=== PATIENT | male | born 1960 | race Caucasian/White ===

== ENCOUNTER 2016-10-13 10:23 | Observation (INO) ==
[2016-10-13] MEDS ORDERED: Ipratropium/Albuterol Neb 3 ML IH ONE (10:43)
[2016-10-13] MEDS ORDERED: Acetaminophen 325 MG TABLET PO ONE (10:49)
[2016-10-13] MEDS ORDERED: 0.9 % Sodium Chloride 1,000 ML IVC ONE (10:49)
--- NOTE | 2016-10-13 10:50 | Emergency Department Note ---
Disposition Clinical Impression: Sarcoidosis Fever Qualifiers: Fever type: unspecified Qualified Code(s): R50.9 - Fever, unspecified Nausea and vomiting Qualifiers: Vomiting type: unspecified Vomiting Intractability: unspecified Qualified Code( s): R11.2 - Nausea with vomiting, unspecified COPD (chronic obstructive pulmonary disease) Qualifiers: COPD type: unspecified COPD Qualified Code(s): J44.9 - Chronic obstructive pulmonary disease, unspecified Disposition: Admitted As Inpatient Condition: Fair Time of Disposition: 12:04 General Adult HPI - General Chief complaint: ED Nausea/Vomiting/Diarrhea Stated complaint: Poss pneumonia Time Seen by Provider: 10/13/16 10:32 Source: patient Mode of arrival: ambulatory Limitations: no limitations Nursing Notes Reviewed: Yes Vital Signs Reviewed: Yes - History of Present Illness HPI Narrative: 56-year-old with a history of sarcoidosis who underwent a hernia repair 6 days ago who comes in with nausea vomiting shaking chills cough shortness of breath. The patient states had surgery 6 days ago. He's had some nausea vomiting and actually a cough and shortness of breath. Patient was seen couple of days ago had a CT of the abdomen which was negative. He's had worsening cough and had a chest x-ray last p.m. that showed a bilateral infiltrates that they thought was underlying sarcoid but could not rule out pneumonia. He has had a fever up to 103. Pt Subjective Complaint: Chills cough nausea vomiting Location: abdomen Radiation: non-radiation Pain Scale: 6 Quality: aching Consistency: intermittent Improves with: nothing Worsens with: other (Coughing) Associated symptoms: Reports: cough, fever/chills, nausea/vomiting Treatments Prior to Arrival: none - Related Data Home Medications Medication Instructions Recorded Confirmed Albuterol Sulfate [Proair Hfa] 2 puff IH Q4H PRN 10/07/16 10/07/16 Budesonide/Formoterol 160/4.5 2 puff IH BIDR 10/07/16 10/07/16 [Symbicort 160/4.5] Buspirone HCl [Buspar] 7.5 mg PO HS 10/07/16 10/07/16 Methotrexate [Otrexup] 10 mg PO QWEEK 10/07/16 10/07/16 Previous Rx's Medication Instructions Recorded OxyCODONE/APAP 10/325 [Percocet 1 each PO Q6HR PRN #24 tab 10/07/16 10/325 MG] Chlorpromazine HCl 25 mg PO Q6H #10 tablet 10/09/16 Ondansetron ODT [Zofran ODT] 4 mg PO Q6H #9 tab.rapdis 10/09/16 Sulfamethoxazole/Trimeth DS 1 each PO BID #20 tablet 10/09/16 [Bactrim DS] Allergies Allergy/AdvReac Type Severity Reaction Status Date / Time No Known Allergies Allergy Verified 10/09/16 15:05 All systems ED: reviewed and negative except as stated. Constitutional: Reports: fever, chills. Denies: weakness, weight change Eyes: Denies: eye pain, eye discharge, vision change ENT ED: Denies: ear pain, throat pain, dental pain, hearing loss, epistaxis, congestion, dysphagia Cardiovascular: Denies: chest pain, palpitations, dyspnea on exertion, edema, syncope Respiratory: Reports: cough. Denies: dyspnea, wheezes, hemoptysis, stridor Gastrointestinal: Denies: abdominal pain, nausea, vomiting, diarrhea, constipation, hematemesis, melena, hematochezia Genitourinary: Denies: urgency, dysuria, frequency, hematuria Musculoskeletal: Denies: back pain, neck pain, arthralgia, myalgia Integumentary: Denies: rash, abrasion, lesions Neurological: Denies: headache, weakness, numbness, paresthesias, confusion, abnormal gait, vertigo Psychiatric: Denies: anxiety, depression, suicidal thoughts, homicidal thoughts , auditory hallucinations, visual hallucinations Endocrine: Denies: fatigue Hematological/Lymphatic: Denies: easy bleeding, easy bruising Allergic/Immunologic: Denies: facial swelling, urticaria Past Medical History - Past Medical History Medical history: Reports: other Psychiatric history: Reports: no psych history - Social History Smoking Status: Never smoker Smokeless Tobacco Status: No Alcohol use: Reports: rarely Drug use: Reports: none Physical Exam - General Limitations: no limitations General appearance: alert, in no apparent distress - Head Head exam: atraumatic, normocephalic, normal inspection - Eye Eye exam: Present: normal appearance, PERRL, EOMI - ENT ENT exam: normal exam, normal oropharynx, mucous membranes moist - Neck Neck exam: Present: normal inspection, full ROM, trachea midline - Chest Chest inspection: Present: normal inspection, symmetric chest wall rise - Respiratory Respiratory exam: Present: wheezes, accessory muscle use, prolonged expiratory phase - Cardiovascular Cardiovascular exam: Present: regular rate, tachycardia - Abdominal Exam Abdominal exam: Present: soft, Non-Tender. Absent: tenderness, distention, guarding, rebound, rigidity - Extremities Exam Extremities exam: Present: normal inspection, full ROM. Absent: tenderness, pedal edema - Expanded Lower Extremity Exam Neurovascular/Tendon exam: Absent: motor deficit, sensory deficit, tendon deficit Gait: observed and normal - Back Exam Back exam: Present: normal inspection, full ROM. Absent: tenderness - Neurological Exam Neurological exam: Present: alert, oriented X3 - Psychiatric Psychiatric exam: Present: normal affect, normal mood - Skin Skin exam: Present: warm, dry, intact, normal color Course - Reevaluation(s) Reevaluation #1: 56-year-old who had hernia surgery week ago as had nausea vomiting cough. Fever up to 103. Chest x-ray was concerning for possible pneumonia, CT scan indicated likely sarcoidosis. Patient with diffuse wheezing. Patient will be admitted for further evaluation and treatment. Time: 12:08 - Consultations Consultation #1: Discussed with Dr. Nayak, admit. Time: 12:18 Vital Signs Temperature 103 F H 10/13/16 10:26 Pulse Rate 127 10/13/16 10:26 Respiratory Rate 16 10/13/16 10:26 Blood Pressure 113/69 10/13/16 10:26 O2 Sat by Pulse Oximetry 91 10/13/16 10:26 Temperature 103 F H 10/13/16 10:26 Pulse Rate 127 10/13/16 10:26 Respiratory Rate 16 10/13/16 10:26 Blood Pressure 113/69 10/13/16 10:26 O2 Sat by Pulse Oximetry 93 10/13/16 10:52 Oxygen Delivery Oxygen Delivery Room Air Medical Decision Making - Lab Data Lab results reviewed: Yes I reviewed the patient's lab results. Result diagrams: 10/13/16 10:50 10/13/16 10:50 Lab Results 10/13/16 10/13/16 10/13/16 Range/Units 10:50 10:50 10:50 WBC 9.7 (4.3-11.1) K/mcL RBC 6.00 H (4.19-5.50) M/mcL Hgb 18.3 H (12.9-16.9) g/dL Hct 51.3 H (37.5-50.1) % MCV 85.5 (83.0-100.0) fL MCH 30.5 (28.0-33.3) pg MCHC 35.7 H (31.6-35.5) g/dL RDW 13.1 (11.5-14.5) % Plt Count 130 L (140-400) K/mcL MPV 10.2 (9.4-12.4) fL Immature Gran % 0.3 (0-4) % Seg Neutrophils % 87.4 % Lymphocytes % 2.2 % Monocytes % 8.0 % Eosinophils % 1.8 % Basophils % 0.3 % Neutrophils # 8.4 (1.6-8.9) K/mcL Lymphocytes # 0.2 L (0.6-4.6) K/mcL Monocytes # 0.8 (0.0-1.3) K/mcL Eosinophils # 0.2 (0.0-0.6) K/mcL Basophils # 0.0 (0.0-0.2) K/mcL Sodium 137 (136-145) mEq/L Potassium 4.3 (3.5-4.5) mEq/L Chloride 103 (98-109) mEq/L Carbon Dioxide 27 (19-29) mEq/L BUN 23 (8-26) mg/dL Creatinine 1.47 H (0.72-1.25) mg/dL Est GFR ( Amer) > 60 (> 60) Est GFR (Non-Af Amer) 50 L (> 60) BUN/Creatinine Ratio 16 (6-26) Glucose 135 H (70-99) mg/dL Calculated Osmolality 290 (280-300) Lactic Acid 1.8 (0.5-2.2) mmol/L Calcium 9.1 (8.6-10.8) mg/dL - Radiology Data Radiology results reviewed: Yes I reviewed the patient's radiology results. Chest CT 10/13/16 10:41 IMPRESSION: 1. No definite acute cardiopulmonary disease. 2. CT findings compatible with the provided history of sarcoidosis as described. D/ / 10/13/2016 11:58:39 Madeline Hartmann MD / cynthia Interpreting Provider: Madeline Hartmann MD - EKG Data EKG #1 EKG attestation: Yes I reviewed and interpreted this EKG. EKG shows normal: sinus rhythm Rate: tachycardia Rhythm: NSR Voltage: c/w LVH Interpretation: no acute changes
[2016-10-13] MEDS ORDERED: Levofloxacin 750 MG/150 ML 750 MG/150 ML BAG IVPB ONE (10:53)
[2016-10-13 11:07] LABS: Basophils % 0.3 %; Eosinophils # 0.2 K/mcL (0.0-0.6); Eosinophils % 1.8 %; Hematocrit 51.3 % (37.5-50.1); Hemoglobin 18.3 g/dL (12.9-16.9); Immature Granulocytes % 0.3 % (0-4); Lymphocytes # 0.2 K/mcL (0.6-4.6); Lymphocytes % 2.2 %; Mean Corpuscular HGB Conc 35.7 g/dL (31.6-35.5); Mean Corpuscular Hemoglobin 30.5 pg (28.0-33.3); Mean Corpuscular Volume 85.5 fL (83.0-100.0); Mean Platelet Volume 10.2 fL (9.4-12.4); Monocytes # 0.8 K/mcL (0.0-1.3); Neutrophils # 8.4 K/mcL (1.6-8.9); Platelet Count 130 K/mcL (140-400); Red Cell Distribution Width 13.1 % (11.5-14.5); Segmented Neutrophils % 87.4 %
[2016-10-13 11:19] LABS: BUN/Creatinine Ratio 16 (6-26); Blood Urea Nitrogen 23 mg/dL (8-26); Calcium 9.1 mg/dL (8.6-10.8); Carbon Dioxide 27 mEq/L (19-29); Chloride 103 mEq/L (98-109); Glucose 135 mg/dL (70-99); Osmolality,Calculated 290 (280-300); Potassium 4.3 mEq/L (3.5-4.5); Sodium 137 mEq/L (136-145); eGFR For African Americans > 60 (> 60); eGFR For Non-African Americans 50 (> 60)
[2016-10-13] MEDS ORDERED: methylPREDNISolone 125 MG/2 ML VIAL IVP ONE (12:14)
[2016-10-13] MEDS ORDERED: Acetaminophen 325 MG TABLET PO PRN (13:29)
[2016-10-13] MEDS ORDERED: Ondansetron 4 MG/2 ML VIAL IVP PRN (13:29)
[2016-10-13] MEDS ORDERED: *HR* Morphine 2 MG/ML SYRINGE IVP PRN (13:29)
[2016-10-13] MEDS ORDERED: Naloxone 0.4 MG/ML INJ IVP PRN (13:29)
[2016-10-13] MEDS ORDERED: Metoclopramide 10 MG/2 ML VIAL IVP PRN (13:46)
[2016-10-13] MEDS ORDERED: Metoclopramide 10 MG/2 ML VIAL IVP ONE (13:47)
--- NOTE | 2016-10-13 14:10 | Internal Med History&Physical ---
<Stewart Vasquez - Last Filed: 10/13/16 18:35> Date of Encounter: 10/13/16 Time of Encounter: 12:30 Assessment and Plan (1) SIRS (systemic inflammatory response syndrome) Current visit: Yes Status: Acute Upon admission to ED today, patient presents with 2 SIRS criteria of temperature of 103F and heart rate of 127 BPM. Patient's current WBC is 9.7 and respiration rate is 18. Initial lactic acid is 1.8. CXR yesterday was suspicious for pneumonia based on bilateral infiltrates, but CT of the chest today shows no definite acute cardiopulmonary disease and CT findings compatible with the provided history of sarcoidosis as described. Patient administered IV Levaquin while in the ED. Hold IV Levaquin for now to determine the results of the STAT CT scan of the abdomen to rule out possible surgical site infection from patient's umbilical hernia repair 6 days ago. Lactic acid ordered. Will monitor patient for signs of increasing infection/SIRS criteria and will consider continuation of IV antibiotics based on results of CT and blood/urine cultures. (2) Tachycardia Current visit: Yes Status: Acute Patient presents with acute tachycardia and heart rate of 127 bpm on admission to ED. Patient denies any current cardiac history or issues. Patient is also febrile with temperature 103F. Patient placed on continuous cardiac telemetry with IV fluids and administer Tylenol PRN for fever control. Echocardiogram ordered. (3) Fever Current visit: Yes Status: Acute Patient presents with acute fever of 103F on admission to ED. Will administer tylenol PRN for fever reduction. IV 0.9 NS at 100 mL/HR ordered. Blood/urine cultures ordered. Qualifiers: Fever type: unspecified Qualified Code(s): R50.9 - Fever, unspecified (4) Hiccups Current visit: Yes Status: Acute Patient presents with acute and chronic post surgery for umbilical hernia repair 6 days ago. IVP Reglan 10 mg now and every 6 when necessary for nausea and hiccups. (5) Nausea and vomiting Current visit: Yes Status: Acute Patient presents with acute nausea and vomiting for the past 6 days post surgery for umbilical hernia repair. Patient states he has had cyclical nausea and vomiting and has lost 10 pounds in 1 week from not being able to eat. Stat CT the abdomen without contrast ordered to rule out possible infectious process of the surgical site. Patient given IVP Zofran while in the ED. Will order IVP Reglan 10 mg now as well as every 6 when necessary for nausea and hiccups. Monitor I&O and daily weight. Qualifiers: Vomiting type: cyclical vomiting Vomiting Intractability: non-intractable Qualified Code(s): G43.A0 - Cyclical vomiting, not intractable (6) At risk for surgical site infection Current visit: No Status: Acute Patient reports repair of umbilical hernia 6 days ago and presents currently with nausea, vomiting, SOB, cough, and fever. Patient's current WBC is 9.7. Patient had CT of the abdomen post surgery which was negative. CT of the abdomen ordered tomorrow to rule out possible infectious process post surgery due to patient having upper GI today. Stat KUB ordered. On examination, patient surgical site is intact with edges approximated and with mild erythema. Will assess surgical site for signs of increasing infection. Wound Care consult and daily wound care ordered. (7) COPD (chronic obstructive pulmonary disease) Current visit: Yes Status: Chronic Patient presents with history of chronic COPD. On admission today, patient is mildly dyspneic and SPO2 is 91% on room air. CT of the chest without contrast today shows no definite acute cardiopulmonary disease. CT findings compatible with the provided history of sarcoidosis as described. Patient placed on supplemental O2 continuous SPO2 monitoring. DuoNeb nebs ordered every 4 scheduled. Qualifiers: COPD type: unspecified COPD Qualified Code(s): J44.9 - Chronic obstructive pulmonary disease, unspecified (8) Sarcoidosis Current visit: Yes Status: Acute Patient presents with history of chronic sarcoidosis. CT of the chest today without contrast shows extensive mediastinal and hilar adenopathy is identified , compatible with the per provided history of sarcoid. Findings are not significantly changed since October 2013. Extensive peribronchial and perilymphatic opacities are identified compatible with the provided history of sarcoid findings are worse in the upper lobes compared to the lower lobes. Findings appear slightly improved since 10/24/2013 and no dominant or suspicious pulmonary nodule is appreciated. (9) DVT prophylaxis Current visit: Yes Status: Acute Patient placed on DVT prophylaxis due to current admission protocol and current symptoms. Heparin 5000 units SQ every 8 ordered. Internal Medicine - H&P: HPI Chief complaint: Nausea/Vomiting/Hiccups Admitted From: Emergency Dept Plans for Post Hospital Care: Home History of present illness: Mr. Holder is a 56 year old male who presents from the ED with chief complaint of nausea and vomiting since having umbilical hernia repair surgery last . He states that he has developed chronic hiccups since the surgery along with the N/V, which has increased his abdominal pain. Upon admission, his temperature is 103F, HR 127, RR 16, BP 113/69, SpO2 93% on 3L. WBC is 9.7. He reports losing 10 pounds in the past week from not eating. He reports some SOB, cough, and fever. Patient's CXR yesterday was suspicious for bilateral infiltrates of sarcoidosis versus possible pneumonia. CT of the chest today without contrast shows no definite acute cardiopulmonary disease. CT findings compatible with the provided history of sarcoidosis as described. Findings are not significantly changed since October 2013. Findings are worse in the upper lobes compared to the lower lobes findings appear slightly improved since 10/24/2013 no dominant or suspicious pulmonary nodule is appreciated. Patient reports he has never smoked and his current medical history includes sarcoidosis and COPD. Mr. Holder is at moderate risk for further respiratory distress and further morbidity due to current N/V and possible infection and will be placed as observation status with orders for continuous cardiac telemetry for sinus tachycardia, supplemental O2 and SpO2 monitoring, echocardiogram, Stat CT of the abdomen to rule out any infection process due to recent surgery, IVP Reglan now and Q6 PRN for hiccups and nausea, and clear liquid diet to be advanced as tolerated. Blood and urine cultures ordered in the ED. Patient is to be monitored for signs of increasing infection, nausea, vomiting, cardiac and/or respiratory distress. Time spent with patient >40 minutes. Past Med Surg Social Fam HX - Past Medical History Source: patient Medical history: COPD, other (Sarcoidosis) Psychiatric history: no psych history - Social History Smoking Status: Never smoker Smokeless Tobacco Status: No Alcohol use: rarely Drug use: none Occupational status: employed Current living situation: Home Activity Level: Independent ambulation Recent Out of Country Travel Within the Last 8 Weeks: No Exposure or Possible Exposure to Illness During Travel: No - Family History Father Race: Family Member Ethnicity: Non- Living Status: Age at : 80 Cause of : Complications from hernia surgery Hx Family Cardiac Disorders: Yes (OH, HTN) Hx Family Endocrine Disorder: Yes (DM) Mother Race: Family Member Ethnicity: Non- Living Status: Still Living Hx Family Neurologic Disorders: Yes (Alzheimer's) Brother Race: Family Member Ethnicity: Non- Living Status: Still Living Hx Family Cardiac Disorders: Yes (HD, HTN, HLD) Hx Family Endocrine Disorder: Yes (DM) Internal Medicine - H&P: Meds Albuterol Sulfate [Proair Hfa] 2 puff IH Q4H PRN 10/07/16 [History] Budesonide/Formoterol 160/4.5 [Symbicort 160/4.5] 2 puff IH BIDR 10/07/16 [ History] Buspirone HCl [Buspar] 7.5 mg PO HS 10/07/16 [History] Methotrexate [Otrexup] 10 mg PO QWEEK 10/07/16 [History] OxyCODONE/APAP 10/325 [Percocet 10/325 MG] 1 each PO Q6HR PRN #24 tab 10/07/16 [ Rx] Ondansetron ODT [Zofran ODT] 4 mg PO Q6H #9 tab.rapdis 10/09/16 [Rx] Sulfamethoxazole/Trimeth DS [Bactrim DS] 1 each PO BID #20 tablet 10/09/16 [Rx] 3 Allergy/AdvReac Type Severity Reaction Status Date / Time No Known Allergies Allergy Verified 10/09/16 15:05 All Systems PM: A 10-system review of systems was performed and is negative for pertinent findings except as documented above in the HPI. - Constitutional Constitutional: as per HPI, weight loss (10 pounds over one week due to current N/V), no chills, no fever(s), no night sweats - EENT Eyes: no change in vision, no discharge, no pain, no photophobia Ears: no ear discharge, no ear pain, no tinnitus Nose, mouth and throat: no dysphagia, no nasal discharge, no neck pain, no sore throat - Breasts Breasts: as per HPI - Cardiovascular Cardiovascular ROS IM: as per HPI, dyspnea, other (Tachycardia) - Respiratory Respiratory: as per HPI, cough, dyspnea - Gastrointestinal Gastrointestinal: as per HPI, abdominal pain, nausea, vomiting, no diarrhea, no hematemesis, no hematochezia, no melena - Genitourinary Genitourinary ROS male: as per HPI - Musculoskeletal Musculoskeletal ROS IM: as per HPI, no numbness, no tingling - Integumentary Integumentary IM: no rash, no unusual bruising - Neurological Neurological ROS: no confusion, no convulsions, no focal weakness, no numbness, no tingling, no tremor(s) - Psychiatric Psychiatric: as per HPI - Endocrine Endocrine IM: as per HPI - Hematologic/Lymphatic Hematologic/Lymphatic: no easy bruising - Allergic/Immunologic Allergic/Immunologic: as per HPI - Constitutional Vitals: Temp Pulse Resp BP Pulse Ox 103 F H 127 18 104/62 93 10/13/16 10:26 10/13/16 10:26 10/13/16 13:12 10/13/16 13:12 10/13/16 10:52 General appearance: Present: cooperative, mild distress, A&O X 3, pleasant, obese, answers questions appropriately - Head Head exam: Present: atraumatic, normocephalic - Eye Eye exam: Present: PERRL, conjuntiva pink, sclera anicteric Pupils: Present: PERRL - ENT ENT exam: Present: normal exam, normal external ear exam - Neck Neck exam general surgery: Present: normal inspection, supple, trachea midline. Absent: lymphadenopathy - Respiratory Respiratory exam: Present: wheezes - Cardiovascular Cardiovascular exam: Present: tachycardia - GI/Abdominal GI/Abdominal exam: Present: guarding, normal bowel sounds, soft, tenderness, no peritoneal signs. Absent: distended - Rectal Rectal exam: Present: deferred - Additional comments: exam deferred. - Extremities Exam Extremities exam: Present: warm, radial pulses palpable and symmetrical. Absent : calf tenderness, cyanotic, pedal edema - Incison Incision: Present: intact, erythema, approximated - Back Exam Back exam: Present: normal inspection - Neurological Exam Neurological exam: Present: CN II-XII intact, oriented X3, no focal deficits. Absent: pronater drift, facial droop, speech deficit - Psychiatric Psychiatric exam: Present: normal affect, normal mood - Skin Skin exam: Present: dry, intact Internal Med - H&P Results - Labs CBC & Chem 7: 10/13/16 10:50 10/13/16 10:50 - EKG Data EKG shows normal: sinus rhythm Rate: tachycardia - EKG Data Prior EKG available for review: no - Diagnostic Studies CT scan - chest Additional comments: Impressions Chest CT 10/13/16 10:41 IMPRESSION: 1. No definite acute cardiopulmonary disease. 2. CT findings compatible with the provided history of sarcoidosis as described. D/ / 10/13/2016 11:58:39 Madeline Hartmann MD / cynthia Interpreting Provider: Madeline Hartmann MD <Jesenia Nayak - Last Filed: 10/14/16 07:51> Date of Encounter: 10/13/16 Time of Encounter: 18:20 Internal Medicine - H&P: HPI History of present illness: Mr. Holder is a 56 year old male All Systems PM: A 10-system review of systems was performed and is negative for pertinent findings except as documented above in the HPI. - Constitutional Vitals: Temp Pulse Resp BP Pulse Ox 97.5 F L 60 18 106/67 94 10/14/16 07:19 10/14/16 07:19 10/14/16 07:19 10/14/16 07:19 10/14/16 07:19 Internal Med - H&P Results - Labs CBC & Chem 7: 10/14/16 04:13 10/14/16 04:13 Labs: Short CBC 10/14/16 Range/Units 04:13 WBC 7.4 (4.3-11.1) K/mcL Hgb 15.9 D (12.9-16.9) g/dL Hct 45.6 (37.5-50.1) % Plt Count 129 L (140-400) K/mcL Neutrophils # 6.6 (1.6-8.9) K/mcL BMP 10/14/16 04:13 Sodium 139 Potassium 4.4 Chloride 105 Carbon Dioxide 26 BUN 20 Creatinine 1.11 Glucose 126 H Calcium 9.0 Urine 10/13/16 Range/Units 17:20 Urine Color Dark Yellow (Yellow) Urine Clarity Clear (Clear) Urine pH 6.5 (5.0-8.0) pH Units Ur Specific [place] 1.023 (1.010-1.025) Urine Protein Negative (Neg-Trace) mg/dL Urine Glucose (UA) Normal (Normal) mg/dL - Impressions ITS Impressions KUB X-Ray 10/13/16 15:12 IMPRESSION: Nonobstructive gas pattern with residual contrast throughout the small and large bowel. D/ / Shorty Up MD / Shorty Up MD Interpreting Provider: Shorty Up MD - Attending Attestation Patient independently seen and examined at bedside. Resting in bed. Admitted for sepsis of unknown etiology. CT chest consistent with chronic lung disease of Sarcoidosis and no acute infiltrates reported. UA negative. Unable to obtain CT abd/pelvis scan due to recent GI imagining a day prior. Will monitor off abx at this time, supportive care, CT abd/pelvis in am Currently resting comfortably. Reports of initially getting relief from IV Reglan with the hiccups, but hiccups reoccurred three hours later. Will D/C IV reglan and start Thorazine 25mg PO q6h prn intractable hiccups. Hiccups started a day after his umbilical hernia repair surgery. Pt has underlying Sarcoidosis and follows a social work nurse at [facility]. Case was discussed with the CENTRAL SUPPLY CLERK Stewart Vasquez, I agree with his documented findings, assessment, and plan, except as listed above.
[2016-10-13] MEDS: 0.9 % Sodium Chloride 1,000 ML IVC SCH (15:10)
[2016-10-13] MEDS: Pantoprazole 40 MG VIAL IVP SCH (15:31)
[2016-10-13] MEDS: Ipratropium/Albuterol Neb 3 ML IH SCH ×3 (15:43→22:59)
[2016-10-13 17:58] LABS: Bilirubin,Urine Small (Negative); Blood,Urine Negative (Negative); Clarity,Urine Clear (Clear); Color,Urine Dark Yellow (Yellow); Glucose,Urine (UA) Normal (Normal); Ketones,Urine Trace mg/dL (Negative); Leukocyte Esterase,Urine Negative (Negative); Nitrite,Urine Negative (Negative); PH,Urine 6.5 pH Units (5.0-8.0); Protein,Urine Negative (Neg-Trace); Specific Gravity,Urine 1.023 (1.010-1.025); Urobilinogen,Urine >=8.0 mg/dL (Normal)
[2016-10-13] MEDS: chlorproMAZINE 25 MG TABLET PO PRN (18:33)
[2016-10-13] MEDS: *HR* Heparin 5,000 UNIT/ML VIAL SQ SCH (21:06)
[2016-10-14] MEDS: 0.9 % Sodium Chloride 1,000 ML IVC SCH (00:38)
[2016-10-14] MEDS: *HR* HYDROcodone/Acet 5/325 mg TABLET PO PRN ×2 (04:33→09:49)
[2016-10-14] MEDS: chlorproMAZINE 25 MG TABLET PO PRN (04:33)
[2016-10-14 04:55] LABS: INR 1.3; Prothrombin Time 13.6 Seconds (9.4-12.1)
[2016-10-14] MEDS: Ipratropium/Albuterol Neb 3 ML IH SCH ×3 (04:55→11:23)
[2016-10-14 04:56] LABS: Hematocrit 45.6 % (37.5-50.1); Immature Granulocytes % 0.3 % (0-4); Lymphocytes # 0.2 K/mcL (0.6-4.6); Mean Corpuscular HGB Conc 34.9 g/dL (31.6-35.5); Mean Corpuscular Hemoglobin 30.3 pg (28.0-33.3); Mean Platelet Volume 10.1 fL (9.4-12.4); Monocytes # 0.6 K/mcL (0.0-1.3); Monocytes % 8.3 %; Neutrophils # 6.6 K/mcL (1.6-8.9); Platelet Count 129 K/mcL (140-400); Red Blood Count 5.24 M/mcL (4.19-5.50); Red Cell Distribution Width 13.1 % (11.5-14.5); Segmented Neutrophils % 88.4 %
[2016-10-14 04:58] LABS: Activated Partial Thrombo Time 27.7 Seconds (26.0-36.0); Hemoglobin A1C 4.8 %
[2016-10-14 04:59] LABS: Hemoglobin 15.9 g/dL (12.9-16.9)
[2016-10-14 05:02] LABS: BUN/Creatinine Ratio 18 (6-26); Blood Urea Nitrogen 20 mg/dL (8-26); Carbon Dioxide 26 mEq/L (19-29); Chloride 105 mEq/L (98-109); Chol/HDL Ratio 4.1 (0-4.9); Cholesterol 167 mg/dL (< 200); Glucose 126 mg/dL (70-99); HDL Cholesterol 41 mg/dL (40-59); LDL Cholesterol,Calculated 112 mg/dL (0-99); Magnesium 2.1 mg/dL (1.6-2.6); Osmolality,Calculated 292 (280-300); Potassium 4.4 mEq/L (3.5-4.5); Sodium 139 mEq/L (136-145); Triglycerides 70 mg/dL (< 150); eGFR For African Americans > 60 (> 60); eGFR For Non-African Americans > 60 (> 60)
[2016-10-14] MEDS: *HR* Heparin 5,000 UNIT/ML VIAL SQ SCH (05:50)
--- NOTE | 2016-10-14 07:18 | Electrocardiograph Report ---
[facility] Test Date: 2016-10-13 Pat Name: Antione Holder Department: 0 Room: 3A35 Gender: M Business Unit Controller: : [id number] Requested By: Brad Marroquin Order Number: [id number] Reading MD: Salazar Bishop MD Measurements Intervals [place] Rate: 111 P: 57 GA: 146 QRS: 14 QRSD: 87 T: 48 QT: 295 QTc: 360 Interpretive Statements SINUS TACHYCARDIA LEFT VENTRICULAR HYPERTROPHY AND ST-T CHANGE Electronically Signed On 10-14-2016 7:17:05 EDT by Salazar Bishop MD
[2016-10-14] MEDS ORDERED: predniSONE 20 MG TABLET PO SCH (09:00)
[2016-10-14] MEDS: Pantoprazole 40 MG VIAL IVP SCH (09:40)
[2016-10-14] MEDS ORDERED: Baclofen 10 MG TABLET PO PRN (10:00)
--- NOTE | 2016-10-14 11:57 | Discharge Summary ---
Date of Encounter: 10/14/16 Time of Encounter: 11:55 - Discharge Diagnosis (1) SIRS (systemic inflammatory response syndrome) Priority: Primary Status: Resolved (2) COPD (chronic obstructive pulmonary disease) Priority: Secondary Status: Chronic Qualifiers: COPD type: unspecified COPD Qualified Code(s): J44.9 - Chronic obstructive pulmonary disease, unspecified (3) Fever Priority: Secondary Status: Resolved Qualifiers: Fever type: unspecified Qualified Code(s): R50.9 - Fever, unspecified (4) Hiccups Priority: Secondary Status: Acute (5) Sarcoidosis Priority: Secondary Status: Chronic - Discharge Medications Home Medications: Albuterol Sulfate [Proair Hfa] 2 puff IH Q4H PRN 10/07/16 [History] Budesonide/Formoterol 160/4.5 [Symbicort 160/4.5] 2 puff IH BIDR 10/07/16 [ History] Buspirone HCl [Buspar] 7.5 mg PO HS 10/07/16 [History] Methotrexate [Otrexup] 10 mg PO QWEEK 10/07/16 [History] OxyCODONE/APAP 10/325 [Percocet 10/325 MG] 1 each PO Q6HR PRN #24 tab 10/07/16 [ Rx] Ondansetron ODT [Zofran ODT] 4 mg PO Q6H #9 tab.rapdis 10/09/16 [Rx] Sulfamethoxazole/Trimeth DS [Bactrim Ds] 1 each PO BID #20 tablet 10/09/16 [Rx] Allergies/Adverse Reactions: 3 Allergy/AdvReac Type Severity Reaction Status Date / Time No Known Allergies Allergy Verified 10/09/16 15:05 Procedures/tests Complete & Pending: Procedures Performed prior 72 hours Category Date Time Status CT abdomen wo no iv no oral [CT] Stat Cat Scan 10/14/16 10:00 Taken EV echocardiogram Routine Y 10/13/16 13:44 Completed Date of admission: 10/13/16 12:42 Primary care physician: Latasha Guerrier Consults: 10/13/16 14:30 Consult to Wound Care [CONS] Routine Reason for Consult: Patient is 6-days post-surgery for umbilical hernia repair. Assess surgical site for signs of infection and make recommnedations for daily wound care while inpatient. Call Completed: No Discharging clinician: Radha Mathews Anticipated date of discharge: 10/14/16 - Patient Status Disposition: Home, Self-Care Condition: Good Functional capacity at discharge: independent ambulation Overall status at discharge: patient is progressing back to baseline - Discharge Instructions Follow Up With: Helga Butcher CNP [Advanced Practice Nurse] - 10/18/16 9:15 am Latasha Guerrier MD [Primary Care Provider] - (in 1-2 weeks Patient will make his own PCP appt. Thank you) - Diet and Activity Activity: increase activity as tolerated Diet: low fat, low cholesterol, low salt diet Hospital course: Mr. Holder is a 56 year old male patient with 3 of sarcoidosis, COPD, recent umbilical hernia repair presented to the ER with complaints of a, nausea or vomiting and abdominal pain that have been ongoing since his surgery and progressively worsening. On evaluation in the ER, he was found to have fever with temperature 103, tachycardia and hypoxia. He was therefore admitted for further evaluation. CT scan of the chest did not show any pneumonia but did show chronic sarcoidosis changes which seem to be improved compared to his prior CT. A CT scan of the abdomen had been done during his last ER visit about 4 days back which did not show any acute abnormalities besides changes related to his recent surgery. A repeat CT scan of the abdomen and pelvis was planned for today. However patient had undergone a double contrast upper GI series with BM yesterday and the change manager image for the CT scan today showed large amount of barium still present in the large colon. As such a CT scan of the abdomen and pelvis was unable to be performed. This morning after the patient was taken down for CT scan, his symptoms have improved significantly. He is no longer having any he Is. Since his initial episode of fever, he has had not had any further episodes of fever. His temperature has been within normal limits since then. No source of infection has been identified. As such he does not need any antibiotics. He will be discharged home today and will follow up with his surgeon as previously scheduled. Patient is also no longer hypoxic. - Time Spent with Patient Total time spent providing and/or coordinating discharge services: Less than 30 minutes (25 min) - Constitutional Vitals: Temp Pulse Resp BP Pulse Ox 97.5 F L 60 18 106/67 94 10/14/16 07:19 10/14/16 07:19 08/24/17 11:24 10/14/16 07:19 10/14/16 11:24 General appearance: Present: cooperative, A&O X 3, pleasant, no acute distress, obese, answers questions appropriately - Neck Neck exam general surgery: Present: supple, trachea midline. Absent: lymphadenopathy - Respiratory Respiratory exam: Present: prolonged expiratory phase, wheezes. Absent: accessory muscle use, rales, rhonchi - Cardiovascular Cardiovascular exam: Present: RRR, +S1, +S2. Absent: diastolic murmur, gallop, rubs, systolic murmur - GI/Abdominal GI/Abdominal exam: Present: normal bowel sounds, soft, no peritoneal signs. Absent: distended, tenderness Additional comments: surgical site healing well. Erythema mostly resolved - Extremities Exam Extremities exam: Present: warm, radial pulses palpable and symmetrical. Absent : calf tenderness, cyanotic, pedal edema - Neurological Exam Neurological exam: Present: alert, oriented X3, no focal deficits. Absent: facial droop, speech deficit
[2016-10-14 12:03] VITALS: BP 122/68
[2016-10-18] MEDS ORDERED: *HR* Methotrexate 2.5 MG TABLET PO SCH (09:00)
== END 2016-10-14 13:21 | disposition home or self-care (01) ==
LOC: EMEROO 10:23 → 3ANU 10:23
PROVIDERS: ADMIT Internal Medicine; ATTEND Internal Medicine

== ENCOUNTER 2019-04-18 09:29 | Inpatient (IN) ==
[2019-04-18] MEDS ORDERED: CeFAZolin Syr 2,000MG/20 ML 2,000 MG/20 ML SYRINGE IVPB ONE (09:54)
[2019-04-18] MEDS ORDERED: Albuterol 2.5 MG/3 ML NEBULIZER IH ONE (10:11)
[2019-04-18] MEDS ORDERED: Ethanol\\Acetic Acid\\Na Ace\\Ben 1,000 ML IRRIG.SOLN IR ONE ×2 (10:15→11:37)
[2019-04-18] MEDS ORDERED: Ondansetron 4 MG/2 ML VIAL IVP ONE (10:17)
[2019-04-18] MEDS ORDERED: *HR* OxyCODONE Immed Rel 5 MG TABLET PO PRN (10:17)
[2019-04-18] MEDS ORDERED: *HR* Promethazine 25 MG/ML VIAL IVP PRN (10:17)
[2019-04-18] MEDS ORDERED: Ringers Solution, Lactated 1,000 ML IVC SCH ×2 (10:45→14:35)
[2019-04-18] MEDS ORDERED: Lidocaine -MPF 2% 2 ML VIAL ONE (10:59)
[2019-04-18] MEDS ORDERED: *HR* Succinylcholine 200 MG/10 ML VIAL IVP ONE (10:59)
[2019-04-18] MEDS ORDERED: *HR* FentaNYL (PF) 100 MCG/2 ML VIAL ONE ×2 (10:59→12:20)
[2019-04-18] MEDS ORDERED: *HR* Midazolam HCl 2 MG/2 ML VIAL ONE (10:59)
[2019-04-18] MEDS ORDERED: Ondansetron 4 MG/2 ML VIAL ONE (10:59)
[2019-04-18] MEDS ORDERED: *HR* Propofol 200 MG/20 ML VIAL IVP ONE (10:59)
[2019-04-18] MEDS ORDERED: Dexamethasone 4 MG/ML VIAL ONE ×2 (11:01→11:02)
[2019-04-18] MEDS ORDERED: Lidocaine -MPF 4% 5 ML AMPUL ONE (11:05)
[2019-04-18] MEDS ORDERED: Ropivacaine/PF 0.5% 30 ML VIAL ONE (11:36)
[2019-04-18] MEDS ORDERED: ROPIVACAINE/PF/NS 0.25% 1 EACH SYRINGE INTRAART ONE (11:36)
[2019-04-18] MEDS ORDERED: *HR* Rocuronium Bromide 50 MG/5 ML VIAL ONE (12:03)
[2019-04-18] MEDS ORDERED: EPHEDrine 50 MG/ML VIAL ONE (12:34)
[2019-04-18] MEDS: *HR* HYDROmorphone PF 0.5 MG/0.5 ML SYRINGE IVP PRN ×2 (13:20→13:35)
[2019-04-18 13:49] LABS: Hematocrit 42.8 % (37.5-50.1); Hemoglobin 15.4 g/dL (12.9-16.9)
[2019-04-18] MEDS ORDERED: Ondansetron 4 MG/2 ML VIAL IVP PRN (14:35)
[2019-04-18] MEDS ORDERED: Naloxone 0.4 MG/ML INJ IVP PRN (14:35)
[2019-04-18] MEDS ORDERED: Sennosides 8.6 MG TABLET PO PRN (14:35)
[2019-04-18] MEDS ORDERED: MOM Conc 10 ML UD.LIQ PO PRN (14:35)
[2019-04-18] MEDS ORDERED: predniSONE 10 MG TABLET PO SCH (15:00)
[2019-04-18] MEDS: *HR* Enoxaparin 30 MG/0.3 ML SYRINGE SQ SCH (16:21)
[2019-04-18] MEDS: ceFAZolin 2,000 MG in 0.9 % Sodium Chloride 100 ML IVPB SCH ×2 (16:23→23:48)
[2019-04-18] MEDS ORDERED: Scopolamine Patch 1.5 MG PATCH.TD72 TD PRN (17:45)
[2019-04-18] MEDS ORDERED: *HR* Enoxaparin 30 MG/0.3 ML SYRINGE SQ SCH (18:00)
[2019-04-18] MEDS: *HR* OxyCODONE Immed Rel 5 MG TABLET PO PRN ×2 (18:37→23:19)
[2019-04-18] MEDS: Budesonide/Formoterol 160/4.5 1 PUFF INH IH SCH (19:52)
[2019-04-19 02:03] LABS: Hematocrit 41.4 % (37.5-50.1); Hemoglobin 15.1 g/dL (12.9-16.9)
[2019-04-19 02:23] LABS: BUN/Creatinine Ratio 16 (6-26); Blood Urea Nitrogen 14 mg/dL (6-20); Calcium 8.5 mg/dL (8.6-10.3); Carbon Dioxide 20 mEq/L (23-29); Chloride 103 mEq/L (98-107); Glucose 164 mg/dL (70-105); Osmolality,Calculated 282 (280-300); Potassium 4.1 mEq/L (3.5-5.1); Sodium 134 mEq/L (136-145); eGFR For African Americans > 60 (> 60); eGFR For Non-African Americans > 60 (> 60)
[2019-04-19 02:49] VITALS: BP 127/82
[2019-04-19] MEDS: *HR* OxyCODONE/APAP 5/325 TABLET PO PRN ×2 (04:36→08:42)
[2019-04-19] MEDS: *HR* Enoxaparin 30 MG/0.3 ML SYRINGE SQ SCH ×2 (04:36→04:40)
[2019-04-19] MEDS: Budesonide/Formoterol 160/4.5 1 PUFF INH IH SCH (07:46)
[2019-04-23] MEDS ORDERED: *HR* Methotrexate 2.5 MG TABLET PO SCH (09:00)
== END 2019-04-19 12:20 | disposition home or self-care (01) | DRG 483 ==
LOC: SAMDAY 09:29 → 3NENU 14:57
PROVIDERS: ADMIT Orthopaedic Surgery; ATTEND Orthopaedic Surgery

== ENCOUNTER 2019-04-27 20:11 | Observation (INO) ==
[2019-04-27] MEDS ORDERED: Pantoprazole 80 MG in 0.9 % Sodium Chloride 50 ML IVPB ONE (20:31)
[2019-04-27] MEDS ORDERED: 0.9 % Sodium Chloride 1,000 ML IVC ONE (20:39)
[2019-04-27 20:49] LABS: Basophils % 0.3 %; Eosinophils # 0.2 K/mcL (0.0-0.6); Hematocrit 44.3 % (37.5-50.1); Hemoglobin 15.9 g/dL (12.9-16.9); Immature Granulocytes % 0.4 % (0-4); Lymphocytes # 0.6 K/mcL (0.6-4.6); Lymphocytes % 5.9 %; Mean Corpuscular HGB Conc 35.9 g/dL (31.6-35.5); Mean Corpuscular Hemoglobin 31.5 pg (28.0-33.3); Mean Corpuscular Volume 87.7 fL (83.0-100.0); Mean Platelet Volume 9.6 fL (9.4-12.4); Monocytes # 1.2 K/mcL (0.0-1.3); Monocytes % 10.8 %; Neutrophils # 8.6 K/mcL (1.6-8.9); Platelet Count 195 K/mcL (140-400); Red Blood Count 5.05 M/mcL (4.19-5.50); Red Cell Distribution Width 13.2 % (11.5-14.5); Segmented Neutrophils % 80.6 %; White Blood Count 10.6 K/mcL (4.3-11.1)
[2019-04-27 20:55] LABS: Prothrombin Time 11.8 Seconds (9.4-12.1)
[2019-04-27 20:58] LABS: Activated Partial Thrombo Time 28.4 Seconds (26.0-36.0)
[2019-04-27 21:05] LABS: BUN/Creatinine Ratio 18 (6-26); Blood Urea Nitrogen 23 mg/dL (6-20); Calcium 10.3 mg/dL (8.6-10.3); Carbon Dioxide 29 mEq/L (23-29); Chloride 103 mEq/L (98-107); Glucose 108 mg/dL (70-105); Osmolality,Calculated 292 (280-300); Potassium 3.7 mEq/L (3.5-5.1); Sodium 139 mEq/L (136-145); eGFR For African Americans > 60 (> 60); eGFR For Non-African Americans 58 (> 60)
[2019-04-27] MEDS ORDERED: Ondansetron 4 MG/2 ML VIAL IVP ONE (21:09)
[2019-04-27] MEDS ORDERED: Ondansetron 4 MG/2 ML VIAL IVP PRN (23:41)
[2019-04-27] MEDS ORDERED: Naloxone 0.4 MG/ML INJ IVP PRN (23:41)
[2019-04-27] MEDS ORDERED: *HR* OxyCODONE Immed Rel 5 MG TABLET PO PRN (23:44)
[2019-04-27] MEDS ORDERED: Acetaminophen 325 MG TABLET PO PRN (23:44)
[2019-04-28] MEDS: *HR* HYDROcodone/Acet 5/325 mg TABLET PO PRN ×2 (00:53→20:56)
[2019-04-28] MEDS: 0.9 % Sodium Chloride 1,000 ML IVC SCH ×2 (00:54→09:10)
[2019-04-28 02:10] LABS: Hematocrit 38.6 % (37.5-50.1)
[2019-04-28 02:12] LABS: Hemoglobin 13.8 g/dL (12.9-16.9)
[2019-04-28] MEDS: Pantoprazole 40 MG VIAL IVP SCH ×2 (05:34→17:41)
[2019-04-28] MEDS ORDERED: *HR* Dextrose 50 % in Water (Syg) 50 ML SYRINGE IVP PRN (07:46)
[2019-04-28] MEDS ORDERED: D5% in Water 1,000 ML IVC PRN (07:46)
[2019-04-28] MEDS ORDERED: Dextrose Gel 15 GM/37.5 ML TUBE PO PRN ×2 (07:46)
[2019-04-28] MEDS: Budesonide/Formoterol 160/4.5 1 PUFF INH IH SCH ×2 (08:00→19:53)
[2019-04-28] MEDS ORDERED: predniSONE 10 MG TABLET PO SCH ×2 (09:00→12:15)
[2019-04-28] MEDS: Folic Acid 1 MG TABLET PO SCH (09:11)
[2019-04-28 09:23] LABS: Hematocrit 38.7 % (37.5-50.1); Hemoglobin 13.5 g/dL (12.9-16.9)
[2019-04-28] MEDS: Insulin LISPRO 300 UNITS/3 ML VIAL SQ SCH ×2 (12:48→17:41)
[2019-04-28] MEDS: *HR* FentaNYL (PF) 100 MCG/2 ML VIAL ONE ×2 (18:17→18:52)
[2019-04-28] MEDS: *HR* Midazolam HCl 5 MG/5 ML VIAL IVP ONE ×2 (18:17→18:52)
[2019-04-28] MEDS ORDERED: *HR* Midazolam HCl 5 MG/5 ML VIAL IVP ONE (19:47)
[2019-04-28] MEDS ORDERED: *HR* FentaNYL (PF) 100 MCG/2 ML VIAL IVP ONE (19:47)
[2019-04-28] MEDS ORDERED: Pantoprazole 80 MG in 0.9 % Sodium Chloride 50 ML IVPB ONE (21:15)
[2019-04-29] MEDS: Insulin LISPRO 300 UNITS/3 ML VIAL SQ SCH ×2 (00:59→08:25)
[2019-04-29 07:14] VITALS: BP 126/73
[2019-04-29] MEDS: Budesonide/Formoterol 160/4.5 1 PUFF INH IH SCH (07:46)
[2019-04-29 08:10] LABS: Basophils % 0.5 %; Eosinophils # 0.2 K/mcL (0.0-0.6); Eosinophils % 3.6 %; Hematocrit 36.3 % (37.5-50.1); Hemoglobin 12.9 g/dL (12.9-16.9); Immature Granulocytes % 0.5 % (0-4); Lymphocytes # 0.7 K/mcL (0.6-4.6); Lymphocytes % 11.1 %; Mean Corpuscular HGB Conc 35.5 g/dL (31.6-35.5); Mean Corpuscular Hemoglobin 31.8 pg (28.0-33.3); Mean Corpuscular Volume 89.4 fL (83.0-100.0); Mean Platelet Volume 9.8 fL (9.4-12.4); Monocytes # 0.7 K/mcL (0.0-1.3); Monocytes % 11.6 %; Neutrophils # 4.6 K/mcL (1.6-8.9); Platelet Count 141 K/mcL (140-400); Red Blood Count 4.06 M/mcL (4.19-5.50); Red Cell Distribution Width 13.3 % (11.5-14.5); Segmented Neutrophils % 72.7 %; White Blood Count 6.3 K/mcL (4.3-11.1)
[2019-04-29 08:23] LABS: BUN/Creatinine Ratio 17 (6-26); Blood Urea Nitrogen 18 mg/dL (6-20); Calcium 8.5 mg/dL (8.6-10.3); Carbon Dioxide 29 mEq/L (23-29); Chloride 106 mEq/L (98-107); Glucose 93 mg/dL (70-105); Osmolality,Calculated 290 (280-300); Phosphorous 3.1 mg/dL (2.7-4.5); Potassium 3.6 mEq/L (3.5-5.1); Sodium 139 mEq/L (136-145); eGFR For African Americans > 60 (> 60); eGFR For Non-African Americans > 60 (> 60)
[2019-04-29] MEDS: Folic Acid 1 MG TABLET PO SCH (08:25)
[2019-04-29] MEDS: Pantoprazole 40 MG VIAL IVP SCH (08:25)
[2019-04-29] MEDS ORDERED: predniSONE 10 MG TABLET PO SCH (09:00)
[2019-04-30] MEDS ORDERED: *HR* Methotrexate 2.5 MG TABLET PO SCH (09:00)
== END 2019-04-29 10:16 | disposition home or self-care (01) ==
LOC: EMEROOARM 20:11 → 3BNU 20:11 → SUATTDRO 22:18 → 3BNU 22:48
PROVIDERS: ADMIT Internal Medicine; ATTEND Internal Medicine